=== PATIENT | male | born 1990 | race African-American/Black ===

== ENCOUNTER 2020-10-10 11:36 | Emergency (ER) | payer BC, SELFPAY | END 2020-10-10 11:55 | disposition home or self-care (01) | LOC: NAV ERS 11:36 | DX: Z00.00 Encounter for general adult medical examination without abnormal findings (principal); I10 Essential (primary) hypertension; F17.210 Nicotine dependence, cigarettes, uncomplicated | CPT/HCPCS: 99283 ==

== ENCOUNTER 2021-02-27 00:11 | Emergency (ER) | payer SELFPAY ==
[2021-02-27] MEDS ORDERED: Boostrix 0.5 ML (Tdap) VIAL ONE (00:43)
== END 2021-02-27 01:25 ==
LOC: NAV ERS 00:11
DX: S31.030A Puncture wound without foreign body of lower back and pelvis without penetration into retroperitoneum, initial encounter (principal); S46.812A Strain of other muscles, fascia and tendons at shoulder and upper arm level, left arm, initial encounter; F10.129 Alcohol abuse with intoxication, unspecified; F17.210 Nicotine dependence, cigarettes, uncomplicated; W26.8XXA Contact with other sharp object(s), not elsewhere classified, initial encounter
CPT/HCPCS: 90471; 90715; 93005

== ENCOUNTER 2021-08-07 20:23 | Emergency (ER) | payer OTHER, SELFPAY | END 2021-08-07 21:10 | disposition left against medical advice (07) | LOC: NAV ERS 20:23 | DX: Z53.21 Procedure and treatment not carried out due to patient leaving prior to being seen by health care provider (principal) ==

== ENCOUNTER 2023-10-21 14:17 | Emergency (ER) | payer SELFPAY ==
[2023-10-21] MEDS ORDERED: HYDROcodone/Acetaminophen 5/325 mg Tablet ONE (15:01)
== END 2023-10-21 15:15 | disposition short-term general hospital (02) ==
LOC: NAV ERS 14:17
DX: N50.811 Right testicular pain (principal); N50.812 Left testicular pain; N45.1 Epididymitis; F17.210 Nicotine dependence, cigarettes, uncomplicated
CPT/HCPCS: 99284